=== PATIENT | female | born 1985 | race Hispanic/Latino ===

== ENCOUNTER 2022-07-31 11:54 | Inpatient (IN) | payer MEDICAID, OTHER ==
[2022-07-31 12:29] VITALS: BMI 30.7
[2022-07-31] MEDS ORDERED: Calcium Gluc 4.6 MEQ/10 ML (100 MG/ML) SLOW IVP PRN (12:40)
[2022-07-31] MEDS ORDERED: Ondansetron PF 4 MG/2 ML Vial IVP PRN (12:40)
[2022-07-31] MEDS ORDERED: Lorazepam 2 MG/ML VIAL SLOW IVP PRN (12:40)
[2022-07-31] MEDS ORDERED: Misoprostol 200 MCG TAB PR PRN (12:40)
[2022-07-31] MEDS ORDERED: Lidocaine 1% (PF) 30 ML VIAL SC PRN (12:40)
[2022-07-31] MEDS ORDERED: Diphenoxylate HCl/Atropine Tablet PO PRN (12:40)
[2022-07-31] MEDS ORDERED: Promethazine HCl 25 MG/ML VIAL IM PRN (12:40)
[2022-07-31] MEDS ORDERED: Carboprost 250 MCG/ML AMP IM PRN (12:40)
[2022-07-31] MEDS ORDERED: Zolpidem Tartrate 5 MG TAB PO PRN (12:40)
[2022-07-31] MEDS ORDERED: hydrALAZINE 20 MG/ML VIAL SLOW IVP PRN ×2 (12:40→22:02)
[2022-07-31] MEDS ORDERED: NS w/ Oxytocin 30 units 500 ML IV SCH (12:45)
[2022-07-31] MEDS ORDERED: Penicillin G Potassium 5 MILL.UNITS in Sodium Chloride 0.9% 100 ML IVPB SCH (12:45)
[2022-07-31] MEDS: Magnesium Sulfate 20 gm/500 ml 20 GM/500 ML BAG ONE ×2 (12:53→22:50)
[2022-07-31] MEDS ORDERED: Labetalol HCl 100 MG/20 ML VIAL ONE (12:53)
[2022-07-31] MEDS ORDERED: hydrALAZINE 20 MG/ML VIAL ONE (12:56)
[2022-07-31] MEDS ORDERED: Betamet Acet/Betamet Na Ph 30 MG/5 ML VIAL ONE (13:11)
[2022-07-31 13:18] LABS: #Monocytes 0.5 10x3/uL (0.0-1.1); %Basophils 0.1 % (0.0-2.0); %Eosinophils 0.3 % (0.0-6.0); %Lymphocytes 36.3 % (18.0-47.0); %Monocytes 6.6 % (0.0-10.0); %Neutrophils 56.6 % (40.0-75.0); Hemoglobin 9.2 g/dL (12.0-15.5); Mean Corpuscular HGB CONC 31.7 g/dL (32.0-36.0); Mean Corpuscular Hemoglobin 24.4 pg (27.0-33.0); Mean Corpuscular Volume 76.9 fl (81.6-98.3); Mean Platelet Volume 10.3 fl (7.4-10.4); Platelet Count 232 10x3/uL (150-450); RBC Distribution Width 16.5 % (11.5-14.5); Red Blood Cell (RBC) Count 3.77 10x6/uL (3.90-5.03); White Blood Cell (WBC) Count 7.1 10x3/uL (3.5-10.5)
[2022-07-31 13:39] LABS: ALT (SGPT) 6 U/L (8-55); AST (SGOT) 18 U/L (5-34); Albumin 2.9 g/dL (3.5-5.0); Alkaline Phosphatase 167 U/L (40-110); Anion Gap 13 mmol/L (10-20); BUN (Urea Nitrogen) 12 mg/dL (7.0-18.7); Bilirubin, Total 0.3 mg/dL (0.2-1.2); Calc. Creatinine Clearance 133 mL/min (70-130); Calcium 7.7 mg/dL (7.8-10.44); Carbon Dioxide 22 mmol/L (22-29); Chloride 105 mmol/L (98-107); Estimated GFR 118; Glucose 81 mg/dL (70-105); Potassium 4.1 mmol/L (3.5-5.1); Protein, Total 5.9 g/dL (6.0-8.3); Sodium 136 mmol/L (136-145)
[2022-07-31] MEDS: NS w/ Oxytocin 30 units 500 ML IV SCH ×2 (13:46→13:50)
[2022-07-31 13:55] LABS: HBSAg Index 0.22 S/CO (0-0.99); Hep B Surf Ag Non-Reactive S/CO (NonReactive)
[2022-07-31 13:56] LABS: Syphilis Antibody Nonreactive (Nonreactive); Syphilis Antibody Index 0.05 S/CO (<1.00 Non-Reactive)
[2022-07-31] MEDS ORDERED: Betamet Acet/Betamet Na Ph 30 MG/5 ML VIAL IM SCH (14:00)
[2022-07-31 15:03] LABS: SARS-CoV-2 NAA Rapid Test Not Detected (NotDetected)
[2022-07-31] MEDS: Penicillin G 2.5 MILL.units 2.5 MILL.UNITS in Premix Bag 1 BAG IVPB SCH (17:35)
[2022-07-31 18:30] LABS: Troponin I Less than 0.010 ng/mL (< 0.028)
[2022-07-31 19:26] LABS: Creatinine, Urine 23.98 mg/dL (47-110)
[2022-07-31] MEDS ORDERED: Acetaminophen 500 MG TAB PO SCH (20:15)
[2022-07-31] MEDS ORDERED: Tranexamic Acid 1,000 MG/10 ML VIAL ONE (21:47)
[2022-07-31] MEDS ORDERED: Carboprost 250 MCG/ML AMP ONE (21:47)
[2022-07-31] MEDS ORDERED: Boostrix 0.5 ML (Tdap) VIAL (>/=7 yrs of age) IM ONE (22:02)
[2022-07-31] MEDS ORDERED: Bisacodyl 10 MG SUPP PR PRN (22:02)
[2022-07-31] MEDS ORDERED: Milk Of Magnesia 30 ML UDCUP PO PRN (22:02)
[2022-07-31 22:18] LABS: RapidComm Collect By NURSE
[2022-07-31 22:20] LABS: RapidComm Collect By NURSE; pH (Cord, venous) 7.172 (7.250-7.350)
[2022-07-31] MEDS ORDERED: Magnesium Sulfate 20 gm/500 ml 20 GM/500 ML BAG ONE (22:53)
[2022-07-31] MEDS ORDERED: Labetalol HCl 200 MG TAB PO SCH (23:45)
[2022-07-31] MEDS: Ibuprofen 800 MG TAB PO SCH (23:53)
[2022-07-31] MEDS: Labetalol HCl 200 MG TAB PO SCH (23:53)
[2022-08-01 05:50] LABS: #Monocytes 0.4 10x3/uL (0.0-1.1); #Neutrophils 10.9 10x3/uL (1.5-8.4); %Basophils 0.1 % (0.0-2.0); %Lymphocytes 9.7 % (18.0-47.0); %Monocytes 3.3 % (0.0-10.0); %Neutrophils 86.5 % (40.0-75.0); Hemoglobin 8.4 g/dL (12.0-15.5); Mean Corpuscular HGB CONC 31.9 g/dL (32.0-36.0); Mean Corpuscular Hemoglobin 24.8 pg (27.0-33.0); Mean Corpuscular Volume 77.6 fl (81.6-98.3); Mean Platelet Volume 10.2 fl (7.4-10.4); Platelet Count 196 10x3/uL (150-450); Red Blood Cell (RBC) Count 3.39 10x6/uL (3.90-5.03); White Blood Cell (WBC) Count 12.6 10x3/uL (3.5-10.5)
[2022-08-01] MEDS ORDERED: Ibuprofen 800 MG TAB PO SCH (06:00)
[2022-08-01] MEDS: Ibuprofen 800 MG TAB PO SCH ×2 (07:37→19:56)
[2022-08-01] MEDS: HYDROcodone/Acetaminophen 5/325 mg Tablet PO PRN ×3 (09:26→23:38)
[2022-08-01] MEDS ORDERED: Magnesium Sulfate 20 gm/500 ml 20 GM/500 ML BAG ONE (09:29)
[2022-08-01] MEDS: Labetalol HCl 200 MG TAB PO SCH ×2 (13:46→23:38)
[2022-08-01] MEDS: Ferrous Sulfate 325 MG TAB PO SCH (23:32)
[2022-08-01] MEDS: Prenatal Vitamin 1 TAB PO SCH (23:33)
[2022-08-01] MEDS: Docusate 100 MG CAP PO SCH ×2 (23:33→23:37)
[2022-08-02] MEDS: Ibuprofen 800 MG TAB PO SCH ×3 (03:44→22:00)
[2022-08-02] MEDS: Penicillin G 2.5 MILL.units 2.5 MILL.UNITS in Premix Bag 1 BAG IVPB SCH ×3 (05:29→05:35)
[2022-08-02] MEDS: Prenatal Vitamin 1 TAB PO SCH (09:04)
[2022-08-02] MEDS: Ferrous Sulfate 325 MG TAB PO SCH ×2 (09:04→17:17)
[2022-08-02] MEDS: Docusate 100 MG CAP PO SCH ×2 (09:04→22:00)
[2022-08-02] MEDS: Labetalol HCl 200 MG TAB PO SCH (12:13)
[2022-08-02] MEDS ORDERED: Witch Hazel-Glycerin 1 EACH JAR TOP PRN (12:29)
[2022-08-02] MEDS ORDERED: Preparation H Ointment 28 GM TUBE TOP PRN (12:30)
[2022-08-02] MEDS ORDERED: Labetalol HCl 100 MG TAB PO SCH (23:59)
[2022-08-03] MEDS: Ibuprofen 800 MG TAB PO SCH ×4 (01:27→20:20)
[2022-08-03] MEDS: HYDROcodone/Acetaminophen 5/325 mg Tablet PO PRN ×2 (04:16→20:21)
[2022-08-03] MEDS: Docusate 100 MG CAP PO SCH ×2 (08:00→20:20)
[2022-08-03] MEDS: Ferrous Sulfate 325 MG TAB PO SCH ×2 (08:00→16:53)
[2022-08-03] MEDS: Prenatal Vitamin 1 TAB PO SCH (08:00)
[2022-08-03] MEDS: Labetalol HCl 100 MG TAB PO SCH ×2 (08:28→20:19)
[2022-08-03] MEDS ORDERED: NIFEdipine XL 30 MG TAB PO SCH (08:30)
[2022-08-03] MEDS ORDERED: hydrALAZINE 20 MG/ML VIAL SLOW IVP SCH (08:30)
[2022-08-04] MEDS: HYDROcodone/Acetaminophen 5/325 mg Tablet PO PRN (01:27)
[2022-08-04] MEDS: Ibuprofen 800 MG TAB PO SCH (05:06)
[2022-08-04 08:28] VITALS: BP 133/75; TEMP 98.3
[2022-08-04] MEDS: Ferrous Sulfate 325 MG TAB PO SCH (09:07)
[2022-08-04] MEDS: Docusate 100 MG CAP PO SCH (09:08)
[2022-08-04] MEDS: Labetalol HCl 100 MG TAB PO SCH (09:08)
[2022-08-04] MEDS: Prenatal Vitamin 1 TAB PO SCH (09:08)
== END 2022-08-04 12:31 | disposition home or self-care (01) | DRG 807 ==
LOC: CSHLD/OP 11:54 → CSHLD 13:32 → CSHPP 08-01 21:25
PROVIDERS: ADMIT Family Medicine; ATTEND Family Medicine
PROC: 10E0XZZ Delivery of Products of Conception, External Approach (ICD-10-PCS; principal; 2022-07-31)
PROC: 0HQ9XZZ Repair Perineum Skin, External Approach (ICD-10-PCS; 2022-07-31)
PROC: 0T9B70Z Drainage of Bladder with Drainage Device, Via Natural or Artificial Opening (ICD-10-PCS; 2022-07-31)
PROC: 3E033VJ Introduction of Other Hormone into Peripheral Vein, Percutaneous Approach (ICD-10-PCS; 2022-07-31)
PROC: 10907ZC Drainage of Amniotic Fluid, Therapeutic from Products of Conception, Via Natural or Artificial Opening (ICD-10-PCS; 2022-07-31)
DX: O14.14 Severe pre-eclampsia complicating childbirth (principal); Z37.0 Single live birth; Z3A.35 35 weeks gestation of pregnancy; O60.14X0 Preterm labor third trimester with preterm delivery third trimester, not applicable or unspecified; O70.0 First degree perineal laceration during delivery; O72.1 Other immediate postpartum hemorrhage; O99.02 Anemia complicating childbirth; D50.9 Iron deficiency anemia, unspecified; Z20.822 Contact with and (suspected) exposure to COVID-19
CPT/HCPCS: 36415; 51702; 71045; 80053; 82570; 82805; 84156; 84484; 85025; 86780; 86850; 86900; 86901; 87340; 88307; 93005; 93010; 99285; J0360; J0702; J2001; J2405; J2540; J2590; J3475; J3490; U0002